=== PATIENT | female | born 1935 | race Caucasian/White ===

== ENCOUNTER 2022-02-25 00:41 | Observation (INO) | payer OTHER, SELFPAY ==
[2022-02-25] VITALS (22 sets, daily range): BP systolic 105–192; BP diastolic 50–77; PULSE 50–71; RESP 14–18; TEMP 35.8–36.4; O2SAT 92–99; BMI 26.4
--- NOTE | 2022-02-25 00:51 | ED.ABDPAIN ---
HPI - Abdominal Pain General Chief Complaint: Abdominal Pain Stated Complaint: abd/back pain x9 hours Time Seen by Provider: 02/25/22 00:51 History of Present Illness HPI narrative: 86-year-old female nonsmoker with history of hypertension, breast cancer, colon cancer status post resection with diverting ostomy (surgery last year at [facility] in [place]) presents with family in the chief complaint of worsening colicky type pain across her upper abdomen over the past 8-9 hours. She states it came on rather gradually and at times becomes very intense and seems to slowly resolve on its own. There is no obvious provocation or palliation but she does admit that it seems to radiate to her back. She denies any association with eating or drinking and has had no change in diet or medications though she states she is had a very poor appetite over the course of the day and has therefore not had anything to eat or drink and did not take her nighttime medications. She denies headache or blurred vision and has no runny nose or sore throat. She denies chest pain or shortness of breath. She is had nausea but denies any vomiting. She denies any change in the quality of fecal material in her ostomy bag. She is had no dysuria, frequency or urgency. Related Data Allergies Allergy/AdvReac Type Severity Reaction Status Date / Time codeine Allergy Verified 02/25/22 02:02 Review of Systems Review of Systems Narrative: GENERAL: Denies chills, fatigue, malaise, fever, sweats. HEENT: Denies sinus pain, ear pain, sore throat, difficulty swallowing, dizziness. RESPIRATORY: Denies dyspnea, cough, wheezing, hemoptysis, sputum. CARDIOVASCULAR: Denies chest pain, palpitations, orthopnea, edema, GASTROINTESTINAL: See HPI : Denies dysuria, frequency, incontinence, hematuria, urinary retention. MUSCULOSKELETAL: denies weakness, joint pain, or bony pain SKIN: Denies rash, skin lesions, or other NEUROLOGIC: Denies weakness, headache, numbness, change in speech, confusion, seizures, incoordination. PSYCHIATRIC: No concerning psychosocial issues. 12 point review of systems is negative except for those stated above Patient History Social History Smoking Status: Never smoker Exam Narrative Exam Narrative: GENERAL: [86] year old patient appears stated age. Well-developed patient, in mild distress. GCS 15 HEAD: Atraumatic. Normocephalic. EYES: Pupils equal round and reactive. Extraocular motions intact. No scleral icterus. No injection or drainage. ENT: Nose without bleeding, purulent drainage. Throat without erythema, tonsillar hypertrophy or exudate. Airway patent. NECK: Trachea midline. Non tender CARDIOVASCULAR: Regular rate and rhythm without murmurs, gallops, or rubs. RESPIRATORY: Clear to auscultation. Breath sounds equal bilaterally. No wheezes, rales, or rhonchi. GASTROINTESTINAL: Abdomen soft, tender in the epigastrium with some bloating, bowel sounds present but decreased EXTREMITIES: No edema or joint tenderness. BACK: Nontender without deformity or crepitance. No flank tenderness. NEURO: AOx3. SKIN: No rash or erythema of visible areas Initial Vital Signs Initial Vital Signs: Vital Signs Temperature 97.6 F 02/25/22 00:55 Pulse Rate 71 02/25/22 00:55 Respiratory Rate 18 02/25/22 00:55 Blood Pressure 192/77 H 02/25/22 00:55 Pulse Oximetry 95 02/25/22 00:55 Oxygen Delivery Method 02/25/22 00:55 Course Orders Ordered: ED Orders 02/25/22 01:04 CT abdomen pelvis w con Stat 02/25/22 01:05 Complete Blood Count AUTO DIFF Stat Comprehensive Metabolic Panel Stat Lactate (Lactic Acid) Stat Lipase Stat 02/25/22 01:17 UA Complete [Urinalysis and Microscopic] Stat 02/25/22 05:27 COVID19 -Nasal RAPID/Pre-Proc Stat Acetaminophen (Acetaminophen 650 Mg Supp) 650 mg AL Q6HR PRN PRN Reason: Fever/Mild Pain (1-3) Bisacodyl (Bisacodyl 10 Mg Supp) 10 mg AL DAILY RENARD Enalaprilat (Enalaprilat 2.5 Mg/ 2 Ml Vial) 1.25 mg IV Q6H RENARD Enoxaparin Sodium (Enoxaparin 40 Mg/0.4 Ml Syringe) 40 mg SUBCUT DAILY RENARD Hydromorphone HCl (Hydromorphone 0.5 Mg Inj) 0.5 mg IV Q2HR PRN PRN Reason: Pain, Severe (7-10) Last Admin: 02/25/22 05:04 Dose: 0.5 mg Hydromorphone HCl (Hydromorphone 0.5 Mg Inj) 0.5 mg IV Q4H PRN PRN Reason: Breakthrough pain only (8-10) Sodium Chloride (Normal Saline 0.9%) 1,000 mls @ 200 mls/hr IV CONT RENARD Last Admin: 02/25/22 05:28 Dose: 200 mls/hr Sodium Chloride (Normal Saline 0.9%) 1,000 mls @ 125 mls/hr IV CONT [facility] Ketorolac Tromethamine (Ketorolac 30 Mg/Ml Vial) 15 mg IV Q6H PRN PRN Reason: Pain, Moderate (4-6) Stop: 02/28/22 05:44 Metoclopramide HCl (Metoclopramide 10 Mg/2 Ml Inj) 5 mg IV Q6HR PRN PRN Reason: Nausea And Vomiting Metoprolol Tartrate (Metoprolol Tartrate 5 Mg/5 Ml Inj) 5 mg IV Q6H [facility] Last Admin: 02/25/22 05:57 Dose: Not Given Morphine Sulfate (Morphine 2 Mg/Ml Inj) 2 mg IV Q4H PRN PRN Reason: Pain, Moderate (4-6) Naloxone HCl (Naloxone 0.4 Mg/Ml Vial) 0.1 mg IV Q2MIN PRN PRN Reason: Opiate Reversal Ondansetron HCl (Ondansetron 4 Mg/2 Ml Inj) 4 mg IV Q2HR PRN PRN Reason: Nausea And Vomiting Last Admin: 02/25/22 05:03 Dose: 4 mg Ondansetron HCl (Ondansetron 4 Mg/2 Ml Inj) 4 mg IV Q6HR PRN PRN Reason: Nausea And Vomiting Discontinued Medications Hydromorphone HCl (Hydromorphone 0.5 Mg Inj) 0.5 mg IV NOW ONE Stop: 02/25/22 01:04 Last Admin: 02/25/22 01:13 Dose: 0.5 mg Documented By: BARRY Sodium Chloride (Normal Saline 0.9%) 1,000 mls @ 1,000 mls/hr IV BOLUS ONE Stop: 02/25/22 02:02 Last Infusion: 02/25/22 03:41 Dose: 0 mls/hr Documented By: Admin: 02/25/22 01:12 Dose: 1,000 mls/hr Documented By: BARRY Ondansetron HCl (Ondansetron 4 Mg/2 Ml Inj) 4 mg IV NOW ONE Stop: 02/25/22 01:04 Last Admin: 02/25/22 01:12 Dose: 4 mg Documented By: BARRY Pantoprazole Sodium (Pantoprazole 40 Mg Vial) 40 mg IV NOW ONE Stop: 02/25/22 01:04 Last Admin: 02/25/22 01:13 Dose: 40 mg Documented By: BARRY Consultations Consultation #1: general surgery happy to provide consultation if/when needed (Rachna) Vital Signs Vital signs: Vital Signs - 8 hr 02/25/22 00:55 Temperature 97.6 F Pulse Rate 71 Respiratory Rate 18 Blood Pressure 192/77 H Pulse Oximetry 95 Oxygen Delivery Method Room Air MDM - Abdominal Pain Lab Data Result diagrams: 02/25/22 01:05 02/25/22 01:05 Labs: Lab Results 02/25/22 02/25/22 02/25/22 Range/Units 01:05 01:05 01:05 WBC 6.9 (4.5-11.0) X10^3/uL RBC 4.60 (4.0-5.2) X10^6/uL Hgb 13.0 (12.0-16.0) g/dL Hct 39.4 (36-46) % MCV 85.8 (80-100) fL MCH 28.3 (26-34) PG MCHC 33.0 (30-36) % RDW 14.5 (11.6-14.8) % Plt Count 223 (150-400) X10^3/uL Neut % (Auto) 89.3 H (50-75) % Lymph % (Auto) 4.4 L (25-40) % [place] % (Auto) 5.5 (3-14) % Eos % (Auto) 0.3 L (2-4) % Baso % (Auto) 0.5 (0-2) % Neut # (Auto) 6100 (5520-7867) /uL Lymph # (Auto) 300 L (8724-1964) /uL [place] # (Auto) 400 (0-900) /uL Eos # (Auto) 0 (0-450) /uL Baso # (Auto) 0 (0-100) /uL Sodium 136 L (137-145) mmol/L Potassium 3.9 (3.4-5.1) mmol/L Chloride 101 (98-107) mmol/L Carbon Dioxide 25 (22-32) mmol/L BUN 24 H (7-17) mg/dL Creatinine 0.66 (0.52-1.04) mg/dL Estimated GFR > 60 (>60) mL/min BUN/Creatinine Ratio 36.4 H (6-22) Glucose 141 H (80-110) mg/dL Lactate 0.9 (0.7-2.1) mmol/L Calcium 9.3 (8.4-10.2) mg/dL Total Bilirubin 0.4 (0.2-1.3) mg/dL AST 26 (14-36) IU/L ALT 11 (<35) IU/L Alkaline Phosphatase 62 (38-126) U/L Total Protein 7.0 (6.3-8.2) g/dL Albumin 4.4 (3.5-5.0) g/dL Globulin 2.6 (1.7-4.1) g/dL Albumin/Globulin Ratio 1.7 (1.0-2.8) Lipase 37 (23-300) U/L Urine Color Urine Appearance Urine pH (4.5-8.0) Ur Specific [place] (1.000-1.035) Urine Protein (Negative) Urine Glucose (UA) (Negative) g/dL Urine Ketones (NEGATIVE) Urine Occult Blood (Negative) Urine Nitrate (Negative) Urine Bilirubin (NEGATIVE) Urine Urobilinogen (0.2) E.U./dL Ur Leukocyte Esterase (NEGATIVE) Urine RBC (0-5/HPF) Urine WBC (0-5/HPF) Ur Squamous Epith Cells (0-5/HPF) Urine Bacteria (None) Ur Culture Indicated? 02/25/22 Range/Units 01:17 WBC (4.5-11.0) X10^3/uL RBC (4.0-5.2) X10^6/uL Hgb (12.0-16.0) g/dL Hct (36-46) % MCV (80-100) fL MCH (26-34) PG MCHC (30-36) % RDW (11.6-14.8) % Plt Count (150-400) X10^3/uL Neut % (Auto) (50-75) % Lymph % (Auto) (25-40) % [place] % (Auto) (3-14) % Eos % (Auto) (2-4) % Baso % (Auto) (0-2) % Neut # (Auto) (8080-2412) /uL Lymph # (Auto) (9830-2419) /uL [place] # (Auto) (0-900) /uL Eos # (Auto) (0-450) /uL Baso # (Auto) (0-100) /uL Sodium (137-145) mmol/L Potassium (3.4-5.1) mmol/L Chloride (98-107) mmol/L Carbon Dioxide (22-32) mmol/L BUN (7-17) mg/dL Creatinine (0.52-1.04) mg/dL Estimated GFR (>60) mL/min BUN/Creatinine Ratio (6-22) Glucose (80-110) mg/dL Lactate (0.7-2.1) mmol/L Calcium (8.4-10.2) mg/dL Total Bilirubin (0.2-1.3) mg/dL AST (14-36) IU/L ALT (<35) IU/L Alkaline Phosphatase (38-126) U/L Total Protein (6.3-8.2) g/dL Albumin (3.5-5.0) g/dL Globulin (1.7-4.1) g/dL Albumin/Globulin Ratio (1.0-2.8) Lipase (23-300) U/L Urine Color Yellow Urine Appearance Clear Urine pH 6.0 (4.5-8.0) Ur Specific [place] 1.010 (1.000-1.035) Urine Protein Negative (Negative) Urine Glucose (UA) Negative (Negative) g/dL Urine Ketones Negative (NEGATIVE) Urine Occult Blood Trace-intact (Negative) Urine Nitrate Negative (Negative) Urine Bilirubin Negative (NEGATIVE) Urine Urobilinogen 0.2 (0.2) E.U./dL Ur Leukocyte Esterase Negative (NEGATIVE) Urine RBC 0-1/hpf (0-5/HPF) Urine WBC None seen (0-5/HPF) Ur Squamous Epith Cells 0-1 /hpf (0-5/HPF) Urine Bacteria Occasional (0-1) (None) Ur Culture Indicated? Cult not indicated Imaging Data CT scan - abdomen/pelvis: Radiologist's Impression: Distended bowel and mid abdomen consistent with partial small bowel obstruction, transition point not clearly identified. Discharge Plan Departure Patient Disposition: Admitted As Inpatient Clinical Impression: Small bowel obstruction Admit Date/Time: 02/25/22 05:30 Admit Provider: Mara Bacon
--- NOTE | 2022-02-25 01:04 | DI.CT.S_ITS ---
PROCEDURE: CT ABDOMEN PELVIS W CON INDICATIONS: severe epigastric pain, no appetite, hx colon CA w/resection TECHNIQUE: After the administration of oral and IV contrast, axial sections were acquired from the lung bases to the pubic symphysis. Coronal and sagittal reformats were performed. For radiation dose reduction, the following was used: automated exposure control, adjustment of mA and/or kV according to patient size. COMPARISON: None. FINDINGS: Image quality: Excellent. Lung bases: Unremarkable. Appearance of thickening at the GE junction. Surgical clips in the left breast. Heart: Mildly enlarged. ABDOMEN: Liver: Normal size. Hepatic hypodensities are most likely cysts. Gallbladder: Unremarkable. Biliary ducts: Unremarkable. Pancreas: Unremarkable. Spleen: Unremarkable. Adrenal Glands: Unremarkable. Kidneys and Ureters: Unremarkable. Stomach and Bowel: Stomach and small bowel loops are dilated. Small bowel loops measure up to 4 cm in diameter. Multiple air-fluid levels are present. There is transitional point in the mid abdomen. The findings are consistent with small bowel obstruction. Distal small bowel wall is mildly thickened. Partial left colectomy and a colostomy in the left lower quadrant. Diverticulosis. No acute diverticulitis. Moderate amount of stool in colon. Peritoneum: There is a small amount of free peritoneal fluid. No free air. Ventral Wall: There is a ventral hernia in the right anterior abdominal wall containing omental fat. Abdominal Nodes: No retroperitoneal or mesenteric adenopathy by size criteria. Vessels: Aorta and inferior vena cava are normal in size. Severe atherosclerotic calcifications. PELVIS: Pelvic Organs: Unremarkable. Bladder: Unremarkable. Pelvic Nodes: No enlarged lymph nodes. Miscellaneous: No inguinal hernias are seen. Bones: Grade 1 anterolisthesis of L4 on L5. Degenerative changes in lumbar spine. IMPRESSION: 1. Small bowel obstruction. 2. Distal small bowel appears thickened, suggesting regional enteritis. 3. Partial left colectomy and a colostomy. 4. Diverticulosis without diverticulitis. 5. There is focal thickening at the GE junction. Recommend esophagram or upper endoscopy for follow-up. 6. A small amount of free fluid is present. 7. Ventral hernia containing omental fat. No significant discrepancy with the overnight stocker radiology preliminary report. Dictated by: Greta Dennis M.D. on 02/25/2022 at 7:59 Approved by: Greta Dennis M.D. on 02/25/2022 at 8:10
[2022-02-25] MEDS: ONDANSETRON 4 MG/2 ML INJ IV ×4 (01:12→11:23)
[2022-02-25] MEDS: SODIUM CHLORIDE 0.9% 1,000 ML 1000 ML IV (01:12)
[2022-02-25] MEDS: PANTOPRAZOLE 40 MG VIAL IV (01:13)
[2022-02-25] MEDS: HYDROMORPHONE 0.5 MG INJ IV ×2 (01:13→05:04)
[2022-02-25 01:27] LABS: Alanine Aminotransferase 11 IU/L (<35); Albumin 4.4 g/dL (3.5-5.0); Albumin Globulin Ratio 1.7 (1.0-2.8); Alkaline Phosphatase 62 U/L (38-126); Aspartate Aminotransferase 26 IU/L (14-36); BUN Creatinine Ratio 36.4 (6-22); Bilirubin Total 0.4 mg/dL (0.2-1.3); Blood Urea Nitrogen 24 mg/dL (7-17); Calcium 9.3 mg/dL (8.4-10.2); Carbon Dioxide 25 mmol/L (22-32); Chloride 101 mmol/L (98-107); Estimated Glomerular Filt Rate > 60 mL/min (>60); Globulin 2.6 g/dL (1.7-4.1); Glucose 141 mg/dL (80-110); HEMOLYSIS < 15 (0-50); Lipase 37 U/L (23-300); Potassium 3.9 mmol/L (3.4-5.1); Sodium 136 mmol/L (137-145)
[2022-02-25 01:28] LABS: Lactate (Lactic Acid) 0.9 mmol/L (0.7-2.1)
[2022-02-25 01:31] LABS: Add Manual Diff / Slide Review NO; Basophils Absolute Auto 0 /uL (0-100); Basophils Percent Auto 0.5 % (0-2); Eosinophils Absolute Auto 0 /uL (0-450); Eosinophils Percent Auto 0.3 % (2-4); Hematocrit 39.4 % (36-46); Lymphocytes Absolute Auto 300 /uL (1100-4500); Lymphocytes Percent Auto 4.4 % (25-40); Mean Corpuscular Hemoglobin 28.3 PG (26-34); Mean Corpuscular Volume 85.8 fL (80-100); Monocytes Absolute Auto 400 /uL (0-900); Monocytes Percent Auto 5.5 % (3-14); Neutrophils Absolute Auto 6100 /uL (1500-7000); Neutrophils Percent Auto 89.3 % (50-75); Platelet Count 223 X10^3/uL (150-400); Red Cell Distribution Width 14.5 % (11.6-14.8); White Blood Cell Count 6.9 X10^3/uL (4.5-11.0)
[2022-02-25 01:33] LABS: Appearance Urine UA CLEAR; Bilirubin Urine UA NEGATIVE (NEGATIVE); Color Urine UA YELLOW; Glucose Urine UA NEGATIVE (Negative); Ketones Urine UA NEGATIVE (NEGATIVE); Leukocyte Esterase Urine UA NEGATIVE (NEGATIVE); Nitrite Urine UA NEGATIVE (Negative); Occult Blood Urine UA TRACE-INTACT (Negative); Protein Urine UA NEGATIVE (Negative); Urobilinogen Urine UA 0.2 E.U./dL (0.2)
[2022-02-25 01:35] LABS: RBC Urine 0-1/HPF (0-5/HPF)
[2022-02-25 01:36] LABS: Bacteria Urine Occasional (0-1); Culture Indicated Urine Cult Not Indicated; Squamous Epithelial Cell Urine 0-1 /HPF (0-5/HPF); WBC Urine None Seen (0-5/HPF)
[2022-02-25] MEDS: SODIUM CHLORIDE 0.9% 1,000 ML 200 ML IV (05:28)
[2022-02-25 06:37] LABS: COVID19 -Nasal RAPID Negative (Negative)
--- NOTE | 2022-02-25 06:45 | P.HP_ITS ---
History of Present Illness History of Present Illness Date Patient Seen: 02/25/22 Time Patient Seen: 06:45 Chief complaint: abd/back pain x9 hours Narrative: Sarah Saleem is an 86 year old female with a history of breast cancer and colon cancer status post colon resection and placement of a diverting ileostomy in September of 2020 was in her usual state of health when she developed abdominal cramping and nausea. She denied any vomiting. She also states that she has had very little output into her ileostomy bag stating it has very little stool and she has not been passing any gas. She reported to the ED provider that she had colicky like pain that radiated to her back. She describes the pain as being crampy and is intermittent. She denies fever chills. She lives in [place], was attending a family reunion at [facility]. on [place]. She is in the room with her son. CT ordered in the emergency department noted abnormally distended bowel in the mid abdomen suggestive of a partial small-bowel obstruction, transition point was not in identified, thickened distal small bowel could indicate concurrent enteritis. She also has colonic diverticulosis without diverticulitis. She is afebrile, blood pressure 114/58, heart rate 51, respiratory rate 16, oxygen saturation of 94% she weighs 149 kg with a BMI of 58.2. She is afebrile, blood pressure 105/53, heart rate 50, respiratory rate 16 oxygen saturation is 94% on room air she weighs 67.5 kg with a BMI 26.4.CBC is unremarkable, sodium is 136, glucose is 141, on the rest of her chemistries are within normal limits UA is negative for UTI and COVID-19 PCR is negative. Patient History Medical History (Updated 02/25/22 @ 06:50 by JOANIE Buchanan) Breast cancer Colon cancer Dyslipidemia Essential hypertension Surgical History (Updated 02/25/22 @ 06:50 by JOANIE Buchanan) H/O hysterectomy for benign disease History of colectomy History of ileostomy History of partial mastectomy Family & Social History Family History (Updated 02/25/22 @ 06:52 by JOANIE Buchanan) Father Myocardial infarction Mother Old age Brother Parkinson's disease Sister Cancer Safety & Behavioral: Feels Safe in Current Yes Environment Been Physically Hurt or No Threatened By a Person Tobacco & Substance use: Smoking Status Never smoker alcohol intake frequency 0-2 drinks per day Substance Use Type does not use Meds Home Medications and Allergies Allergies Allergy/AdvReac Type Severity Reaction Status Date / Time codeine Allergy Verified 02/25/22 02:02 Review of Systems Review of Systems ROS: Yes All systems reviewed with the patient and are negative except as otherwise documented Exam Vital Signs (past 8 hours): - 02/25/22 00:55 02/25/22 05:00 02/25/22 06:00 Temperature 97.6 F Pulse Rate 71 56 L 51 L Respiratory Rate 18 18 16 Blood Pressure 192/77 H 151/69 H 114/58 L Pulse Oximetry 95 99 94 Oxygen Delivery Method Room Air Room Air Oxygen Delivery Method Room Air Narrative Exam Narrative: Gen: Alert, oriented, well nourished 86 y.o. female, appears uncomfortable HEENT: normocephalic, atraumatic, conjunctiva clear, sclera non-icteric, oral mucosa pink and moist Neck: supple, full ROM, no JVD, trachea is midline Resp: Lungs CTA, non-labored breathing CV: RRR, no murmur or rubs Abd: distended, diffusely tender, hypoactive BTs, high pitched sounds Skin: illeostomy pouch on left mid abdomen, largely empty, no signs of infection, no lesions or rashes, dry and intact Neuro: Alert and oriented X 4 w/no focal deficits. Speech clear and coherent. Extremities: moves all 4 extremities, is ambulatory, negative Padmaja?s sign Psyche: normal mood and affect. Objective Labs Result Diagrams: 02/25/22 01:05 02/25/22 01:05 Labs: Laboratory Results - last 24 hr 02/25/22 02/25/22 02/25/22 01:05 01:05 01:05 WBC 6.9 RBC 4.60 Hgb 13.0 Hct 39.4 MCV 85.8 MCH 28.3 MCHC 33.0 RDW 14.5 Plt Count 223 Neut % (Auto) 89.3 H Lymph % (Auto) 4.4 L [place] % (Auto) 5.5 Eos % (Auto) 0.3 L Baso % (Auto) 0.5 Neut # (Auto) 6100 Lymph # (Auto) 300 L [place] # (Auto) 400 Eos # (Auto) 0 Baso # (Auto) 0 Sodium 136 L Potassium 3.9 Chloride 101 Carbon Dioxide 25 BUN 24 H Creatinine 0.66 Estimated GFR > 60 BUN/Creatinine Ratio 36.4 H Glucose 141 H Lactate 0.9 Calcium 9.3 Total Bilirubin 0.4 AST 26 ALT 11 Alkaline Phosphatase 62 Total Protein 7.0 Albumin 4.4 Globulin 2.6 Albumin/Globulin Ratio 1.7 Lipase 37 Urine Color Urine Appearance Urine pH Ur Specific [place] Urine Protein Urine Glucose (UA) Urine Ketones Urine Occult Blood Urine Nitrate Urine Bilirubin Urine Urobilinogen Ur Leukocyte Esterase Urine RBC Urine WBC Ur Squamous Epith Cells Urine Bacteria Ur Culture Indicated? SARS-CoV-2 (PCR) 02/25/22 02/25/22 01:17 05:29 WBC RBC Hgb Hct MCV MCH MCHC RDW Plt Count Neut % (Auto) Lymph % (Auto) [place] % (Auto) Eos % (Auto) Baso % (Auto) Neut # (Auto) Lymph # (Auto) [place] # (Auto) Eos # (Auto) Baso # (Auto) Sodium Potassium Chloride Carbon Dioxide BUN Creatinine Estimated GFR BUN/Creatinine Ratio Glucose Lactate Calcium Total Bilirubin AST ALT Alkaline Phosphatase Total Protein Albumin Globulin Albumin/Globulin Ratio Lipase Urine Color Yellow Urine Appearance Clear Urine pH 6.0 Ur Specific [place] 1.010 Urine Protein Negative Urine Glucose (UA) Negative Urine Ketones Negative Urine Occult Blood Trace-intact Urine Nitrate Negative Urine Bilirubin Negative Urine Urobilinogen 0.2 Ur Leukocyte Esterase Negative Urine RBC 0-1/hpf Urine WBC None seen Ur Squamous Epith Cells 0-1 /hpf Urine Bacteria Occasional (0-1) Ur Culture Indicated? Cult not indicated SARS-CoV-2 (PCR) Negative Assessment & Plan Assessment & Plan narrative: Sarah Saleem will be admitted for a partial small-bowel obstruction. Partial small-bowel obstruction, acute, present on admission * She will be NPO * General surgery has been notified and will see the patient though unlikely to do anything invasive * IVF normal saline at 150 mL/hour GERD, chronic * She is ordered for IV Protonix 40 mg daily Essential hypertension, chronic * She normally takes lisinopril, amlodipine and metoprolol * I have written her for IV enalapril and Lopressor q.6 hours and have requested nursing not administer for blood pressure goes below a systolic of 120 Dyslipidemia, chronic * Statin is being held VTE Prophylaxis: Wells risk score 1 Enoxaparin 40 mg subQ once daily Bilateral SCDs Patient is admitted to the inpatient service due to the severity of disease, risks of further disease progression and this stay is expected to exceed 2 midnights. FEN: IV fluids: NS at 150 ml/hour, diet: NPO, labs: CBC, C/BMP, liver enzymes, Mag, PT/INR Consultants Dr. Briscoe, General Surgery care and involvement in the patient?s care is appreciated. Dispo: probable d/c to home when SBO resolved Code status: DNR/DNI as discussed with the patient who identifies her son Ottoniel Saleem as her surrogate and POA. [X] I have utilized all available immediate resources to obtain, update, or review of the patient's current medications COVID-19 COVID-19 status: Negative Result date/Date tested (Pos, Neg/Pending): 02/25/22 Scores Wells' Criteria for PE Clinical signs and symptoms of DVT: No PE is #1 Dx or equally likely: No Heart rate > 100: No Immobilization at least 3 days or surg in previous 4 weeks: No History of PE or DVT: No Hemoptysis: No Malignancy w/Treatment within 6 months or palliative: Yes Wells' PE Score total: 1 Quality VTE Deep Vein Thrombosis/Pulmonary Embolism Present on Admission: No MIPS - Admit I confirm the patient?s Advance Care Plan is present, Code status is documented, Surrogate decision maker is in patient?s record [If Yes, STOP here]: Yes MIPS - DC The patient has current or prior documentation of left ventricular ejection fraction (LVEF) less than 40%, or moderate or severely depressed left ventricular systolic function.: No
--- NOTE | 2022-02-25 07:41 | DI.RAD.S_ITS ---
PROCEDURE: FL SMALL BOWEL FOLLOW THROUGH INDICATIONS: small bowel obstruction. Perform with gastrografin COMPARISON: None. FINDINGS: KUB: Preprocedural engineering recruiter film demonstrates a nonobstructive bowel gas pattern. No suspicious abdominal calcifications. Surgical clips noted in the lower abdomen/pelvis. Visualized solid organ contours appear normal. No suspicious bony abnormalities. Small bowel: At the 2 hour image, oral contrast persists within the stomach. No opacification of small bowel or colon noted. At the 4 hour image, oral contrast has transited through the small bowel and colon with contrast material present within the colostomy bag in the left abdomen. Small bowel loops are of normal caliber throughout. Mucosal folds are smooth and of normal thickness. No strictures, intraluminal masses, or extrinsic mass effects are noted. The terminal ileum is identified, and is normal in morphology. IMPRESSION: Nonobstructive bowel gas pattern. Oral contrast is noted to have passed from the stomach through the colon. Dictated by: Afshin Griffin M.D. on 02/25/2022 at 12:17 Approved by: Afshin Griffin M.D. on 02/25/2022 at 12:20
[2022-02-25] MEDS: ENOXAPARIN 40 MG/0.4 ML SYRINGE SUBCUT (08:18)
[2022-02-25] MEDS: SODIUM CHLORIDE 0.9% 1,000 ML 125 ML IV (09:27)
--- NOTE | 2022-02-25 11:21 | PC.NURSE ---
Patient takes care of own ostomy
--- NOTE | 2022-02-25 11:45 | PM.EVENT ---
Event Note Event Note (Rapid Response, Code, or fall): Patient seen this morning during rounds. She seems to be very comfortable. Continues to have some nausea. Abdomen still distended and tender when palpating in all quadrants. Decreased bowel sounds. She says that she might be passing some gas through ileostomy. She never had these episodes before. Continue NPO at this time. If her nausea improves he will start with ice chips and clear liquids. If patient's nausea is not improving, we will consider an NG tube placement. She is not actively vomiting at this time, no need of NG tube. Continue bowel rest. Other chronic medical conditions as mentioned in HPI. Surgery is on board. I offered to talk to her son regarding the care plan but he just left the hospital and was updated by our primary team at night.
[2022-02-25] MEDS: ENALAPRILAT 2.5 MG/ 2 ML VIAL 1.25 MG IV ×2 (11:55→19:05)
[2022-02-25] MEDS: METOPROLOL TARTRATE 5 MG/5 ML INJ IV ×2 (11:55→19:04)
--- NOTE | 2022-02-25 14:54 | P.CONS_ITS ---
History of Present Illness Consult details Date Patient Seen: 02/25/22 Chief complaint: abd/back pain x9 hours Narrative: 86-year-old woman with a history of end colostomy for rectal cancer who is admitted to the hospital with a small-bowel obstruction. She developed abdominal distension and nausea with with a no colostomy output yesterday and presented to the emergency room for evaluation. CT abdomen pelvis demonstrated a small-bowel obstruction, no allen transition point. Gastrografin small-bowel follow-through this morning demonstrates complete passage contrast into the colon and colostomy appliance. She currently feels well without abdominal pain nausea. Meds Home Medications and Allergies Home Medications Medication Instructions Recorded Confirmed Type amlodipine 2.5 mg tablet 2.5 mg PO BEDTIME 02/25/22 02/25/22 History amlodipine 5 mg tablet 5 mg PO BEDTIME 02/25/22 02/25/22 History carboxymethylcellulose sodium 0.5 1 drp ophthalmic (eye) BEDTIME 02/25/22 History % eye drops (Refresh Tears) cholecalciferol (vitamin D3) 50 50 mcg PO DAILY 02/25/22 02/25/22 History mcg (2,000 unit) capsule (Vitamin D3) lisinopril 20 2 tab PO DAILY 02/25/22 02/25/22 History mg-hydrochlorothiazide 12.5 mg tablet metoprolol succinate 25 mg 25 mg PO DAILY 02/25/22 02/25/22 History tablet,extended release 24 hr montelukast 10 mg tablet 10 mg PO BEDTIME 02/25/22 02/25/22 History omeprazole magnesium 20 mg 20 mg PO DAILY 02/25/22 02/25/22 History capsule,delayed release (Acid Youth Liaison Officer (omeprazole)) simvastatin 20 mg tablet 20 mg PO BEDTIME 02/25/22 02/25/22 History Allergies Allergy/AdvReac Type Severity Reaction Status Date / Time codeine Allergy Verified 02/25/22 02:02 Exam Vital Signs (past 8 hours): - 02/25/22 07:00 02/25/22 07:01 02/25/22 07:01 Pulse Rate 52 L 64 Respiratory Rate Blood Pressure 132/60 Blood Pressure [Right Wrist] Pulse Oximetry 92 Oxygen Delivery Method 02/25/22 07:30 02/25/22 07:30 02/25/22 08:19 Pulse Rate 59 L 62 Respiratory Rate Blood Pressure 125/61 Blood Pressure [Right Wrist] Pulse Oximetry 92 96 Oxygen Delivery Method 02/25/22 08:30 02/25/22 09:00 02/25/22 09:30 Pulse Rate 57 L 55 L 56 L Respiratory Rate 18 Blood Pressure Blood Pressure [Right Wrist] Pulse Oximetry 92 94 94 Oxygen Delivery Method 02/25/22 09:46 02/25/22 09:46 02/25/22 10:00 Pulse Rate 57 L 63 Respiratory Rate Blood Pressure 121/58 L Blood Pressure [Right Wrist] Pulse Oximetry 96 93 Oxygen Delivery Method 02/25/22 10:30 02/25/22 11:00 02/25/22 11:17 Pulse Rate 54 L 55 L 60 Respiratory Rate Blood Pressure Blood Pressure [Right Wrist] Pulse Oximetry 93 94 97 Oxygen Delivery Method 02/25/22 11:17 02/25/22 13:18 02/25/22 13:45 Pulse Rate 55 L Respiratory Rate 17 Blood Pressure 134/61 Blood Pressure [Right Wrist] 125/60 Pulse Oximetry 96 Oxygen Delivery Method Room Air Room Air Oxygen Delivery Method Room Air Narrative Exam Narrative: General adult woman alert oriented no acute distress Chest nonlabored respiration Abdomen soft nontender nondistended. Colostomy viable and functional. Objective Labs Result Diagrams: 02/25/22 01:05 02/25/22 01:05 Labs: Laboratory Results - last 24 hr 02/25/22 02/25/22 02/25/22 01:05 01:05 01:05 WBC 6.9 RBC 4.60 Hgb 13.0 Hct 39.4 MCV 85.8 MCH 28.3 MCHC 33.0 RDW 14.5 Plt Count 223 Neut % (Auto) 89.3 H Lymph % (Auto) 4.4 L [place] % (Auto) 5.5 Eos % (Auto) 0.3 L Baso % (Auto) 0.5 Neut # (Auto) 6100 Lymph # (Auto) 300 L [place] # (Auto) 400 Eos # (Auto) 0 Baso # (Auto) 0 Sodium 136 L Potassium 3.9 Chloride 101 Carbon Dioxide 25 BUN 24 H Creatinine 0.66 Estimated GFR > 60 BUN/Creatinine Ratio 36.4 H Glucose 141 H Lactate 0.9 Calcium 9.3 Total Bilirubin 0.4 AST 26 ALT 11 Alkaline Phosphatase 62 Total Protein 7.0 Albumin 4.4 Globulin 2.6 Albumin/Globulin Ratio 1.7 Lipase 37 Urine Color Urine Appearance Urine pH Ur Specific [place] Urine Protein Urine Glucose (UA) Urine Ketones Urine Occult Blood Urine Nitrate Urine Bilirubin Urine Urobilinogen Ur Leukocyte Esterase Urine RBC Urine WBC Ur Squamous Epith Cells Urine Bacteria Ur Culture Indicated? SARS-CoV-2 (PCR) 02/25/22 02/25/22 01:17 05:29 WBC RBC Hgb Hct MCV MCH MCHC RDW Plt Count Neut % (Auto) Lymph % (Auto) [place] % (Auto) Eos % (Auto) Baso % (Auto) Neut # (Auto) Lymph # (Auto) [place] # (Auto) Eos # (Auto) Baso # (Auto) Sodium Potassium Chloride Carbon Dioxide BUN Creatinine Estimated GFR BUN/Creatinine Ratio Glucose Lactate Calcium Total Bilirubin AST ALT Alkaline Phosphatase Total Protein Albumin Globulin Albumin/Globulin Ratio Lipase Urine Color Yellow Urine Appearance Clear Urine pH 6.0 Ur Specific [place] 1.010 Urine Protein Negative Urine Glucose (UA) Negative Urine Ketones Negative Urine Occult Blood Trace-intact Urine Nitrate Negative Urine Bilirubin Negative Urine Urobilinogen 0.2 Ur Leukocyte Esterase Negative Urine RBC 0-1/hpf Urine WBC None seen Ur Squamous Epith Cells 0-1 /hpf Urine Bacteria Occasional (0-1) Ur Culture Indicated? Cult not indicated SARS-CoV-2 (PCR) Negative PFSH Medical History Breast cancer Cataract, bilateral Colon cancer Dyslipidemia Essential hypertension GERD (gastroesophageal reflux disease) Macular degeneration Surgical History H/O hysterectomy for benign disease History of cataract removal with insertion of prosthetic lens History of colectomy History of ileostomy History of mastectomy History of partial mastectomy Family History Father Myocardial infarction Mother Old age Brother Parkinson's disease Sister Cancer Social History household members: children Tobacco & Substance Use Smoking Status: Former smoker Assessment & Plan Assessment and plan (1) Small bowel obstruction: Status: Acute Assessment & Plan narrative: 86-year-old woman with a history of colon cancer status post end colostomy who is admitted to the hospital with a small-bowel obstruction. Small-bowel follow-through study demonstrates resolution of the obstruction there is transit of contrast into the colon. No surgical intervention is necessary. -regular diet -call with questions Time Spent With Patient Critical Care time: I spent a total of [] minutes of critical care time on this patient's care today; this time is exclusive of procedural time.
[2022-02-25] MEDS: SODIUM CHLORIDE 0.9% FLUSH 10 ML IV (19:08)
--- NOTE | 2022-02-25 19:44 | PC.NURSE ---
GI: Pt reports she is much improved since she came to ED. Has been able to take fluids and sm amt of food w/out problems. Reports she has had 3 pouches of stool since on floor. (Had 3 in ED as well.) BTs are almost hyper active. No use of nausea meds or pain meds. Will cont to monitor gi status.
[2022-02-25] MEDS: ATORVASTATIN 20 MG TABLET 10 MG PO (20:36)
[2022-02-25] MEDS: MONTELUKAST 10 MG TABLET PO (20:37)
[2022-02-25] MEDS: POLYVINYL ALCOHOL DROPS 1 DROPS EYE-BOTH (20:42)
--- NOTE | 2022-02-25 22:34 | PC.NURSE ---
Patient is alert and oriented. Breath sounds CTA with RA sat of 93%. HRR but bradycardic; telemetry reading was SB (rate of 54) w/premature atrial contractions. Denied nausea. BT present and abdomen is soft and has brown stool present in ostomy appliance. Denied dysuria, frequency or urgency with urination. Is able to turn herself in bed and up to bathroom with SBA/independent. Wearing bilateral calf SCD's. Denied pain. Fall risk score is moderate but patient calls for assist appropriately so alarm is not activated.
[2022-02-26 02:03] VITALS: BP 121/45; PULSE 72; RESP 17; TEMP 36.4; O2SAT 92
[2022-02-26 06:02] VITALS: BP 119/46; PULSE 76; RESP 16; TEMP 36.3; O2SAT 93
[2022-02-26 06:36] LABS: Alanine Aminotransferase 9 IU/L (<35); Albumin 3.4 g/dL (3.5-5.0); Albumin Globulin Ratio 1.5 (1.0-2.8); Alkaline Phosphatase 48 U/L (38-126); Aspartate Aminotransferase 25 IU/L (14-36); BUN Creatinine Ratio 21.1 (6-22); Bilirubin Total 0.3 mg/dL (0.2-1.3); Bilirubin Unconjugated 0.3 mg/dL (0.0-1.1); Blood Urea Nitrogen 15 mg/dL (7-17); Calcium 8.4 mg/dL (8.4-10.2); Carbon Dioxide 28 mmol/L (22-32); Chloride 107 mmol/L (98-107); Estimated Glomerular Filt Rate > 60 mL/min (>60); Globulin 2.3 g/dL (1.7-4.1); Glucose 91 mg/dL (80-110); HEMOLYSIS < 15 (0-50); Magnesium 1.6 mg/dL (1.6-2.3); Potassium 3.3 mmol/L (3.4-5.1); Sodium 138 mmol/L (137-145); Total Protein 5.7 g/dL (6.3-8.2)
[2022-02-26 06:43] LABS: Add Manual Diff / Slide Review NO; Basophils Absolute Auto 0 /uL (0-100); Basophils Percent Auto 0.8 % (0-2); Eosinophils Absolute Auto 100 /uL (0-450); Eosinophils Percent Auto 4.6 % (2-4); Hematocrit 31.6 % (36-46); Hemoglobin 10.6 g/dL (12.0-16.0); Lymphocytes Absolute Auto 400 /uL (1100-4500); Lymphocytes Percent Auto 14.3 % (25-40); Mean Corpuscular HGB Conc 33.5 % (30-36); Mean Corpuscular Hemoglobin 28.8 PG (26-34); Mean Corpuscular Volume 86.2 fL (80-100); Monocytes Absolute Auto 300 /uL (0-900); Monocytes Percent Auto 9.1 % (3-14); Neutrophils Absolute Auto 2100 /uL (1500-7000); Neutrophils Percent Auto 71.2 % (50-75); Platelet Count 169 X10^3/uL (150-400); Red Blood Cell Count 3.66 X10^6/uL (4.0-5.2); Red Cell Distribution Width 14.4 % (11.6-14.8); White Blood Cell Count 2.9 X10^3/uL (4.5-11.0)
--- NOTE | 2022-02-26 07:15 | P.DS_ITS ---
History of Present Illness History of Present Illness Chief complaint: abd/back pain x9 hours Narrative: Sarah Saleem is an 86 year old female with a history of breast cancer and colon cancer status post colon resection and placement of a diverting ileostomy in September of 2020 was in her usual state of health when she developed abdominal cramping and nausea.? She denied any vomiting.? She also states that she has had very little output into her ileostomy bag stating it has very little stool and she has not been passing any gas.? She reported to the ED provider that she had colicky like pain that radiated to her back.? She describes the pain as being crampy and is intermittent.? She denies fever chills.? She lives in [place], was attending a family reunion at [facility]. on [address] She is in the room with her son. CT ordered in the emergency department noted abnormally distended bowel in the mid abdomen suggestive of a partial small-bowel obstruction, transition point was not in identified, thickened distal small bowel could indicate concurrent enteritis.? She also has colonic diverticulosis without diverticulitis.? She is afebrile, blood pressure 114/58, heart rate 51, respiratory rate 16, oxygen saturation of 94% she weighs 149 kg with a BMI of 58.2.? She is afebrile, blood pressure 105/53, heart rate 50, respiratory rate 16 oxygen saturation is 94% on room air she weighs 67.5 kg with a BMI 26.4.CBC is unremarkable, sodium is 136, glucose is 141, on the rest of her chemistries are within normal limits UA is negative for UTI and COVID-19 PCR is negative. Discharge Providers Provider Date of admission: 02/25/22 05:30 Discharge Date: 02/26/22 Primary care physician: Bela Denton MD Consults: 02/25/22 05:41 Consult to Physician Routine Comment: Consulting Provider: Marco Briscoe Reason for consultation: SBO Has provider been notified: Yes Discharge provider: Francesco Cardozo DO Summary Hospital Course Discharge Diagnosis: Partial small-bowel obstruction, acute, present on admission GERD, chronic Essential hypertension, chronic Dyslipidemia, chronic Hospital Course: Patient admitted for nausea and vomiting with CT scan showing small bowel obstruction general surgery was consulted who recommended Gastrografin study which was successful in showing contrast passed through the entire small bowel. She had hypokalemia with potassium of 3.3 and a potassium supplement was recommended but patient elected to try potassium rich foods instead. Patient's nausea and vomiting improved following this and she was discharged home. Exam Vital Signs (past 8 hours): - 02/26/22 02:03 02/26/22 02:03 02/26/22 06:02 Temperature 97.6 F 97.3 F L Pulse Rate 72 76 Respiratory Rate 17 16 Blood Pressure 121/45 L 119/46 L Pulse Oximetry 92 92 93 Oxygen Delivery Method Room Air Oxygen Flow Rate 0 02/26/22 06:02 Temperature Pulse Rate Respiratory Rate Blood Pressure Pulse Oximetry Oxygen Delivery Method Oxygen Flow Rate 0 Oxygen Delivery Method Room Air Oxygen Flow Rate 0 Narrative Exam Narrative: Gen: Alert, oriented, well nourished 86 y.o. female HEENT: normocephalic, atraumatic, conjunctiva clear, sclera non-icteric, oral mucosa pink and moist Neck: supple, full ROM, no JVD, trachea is midline Resp: Lungs CTA, non-labored breathing CV: RRR, no murmur or rubs Abd: Soft and nontender, normoactive BTs Skin: illeostomy pouch on left mid abdomen, largely empty, no signs of infection, no lesions or rashes, dry and intact Neuro: Alert and oriented X 4 w/no focal deficits. Speech clear and coherent. Extremities: moves all 4 extremities, is ambulatory, negative Padmaja?s sign Psyche: normal mood and affect. Objective Labs Result Diagrams: 02/26/22 06:15 02/26/22 06:15 Labs: Laboratory Results - last 24 hr 02/26/22 02/26/22 06:15 06:15 WBC 2.9 L D RBC 3.66 L Hgb 10.6 L Hct 31.6 L MCV 86.2 MCH 28.8 MCHC 33.5 RDW 14.4 Plt Count 169 Neut % (Auto) 71.2 Lymph % (Auto) 14.3 L [place] % (Auto) 9.1 Eos % (Auto) 4.6 H Baso % (Auto) 0.8 Neut # (Auto) 2100 Lymph # (Auto) 400 L [place] # (Auto) 300 Eos # (Auto) 100 Baso # (Auto) 0 Sodium 138 Potassium 3.3 L Chloride 107 Carbon Dioxide 28 BUN 15 Creatinine 0.71 Estimated GFR > 60 BUN/Creatinine Ratio 21.1 Glucose 91 Calcium 8.4 Magnesium 1.6 Total Bilirubin 0.3 Conjugated Bilirubin 0.0 Unconjugated Bilirubin 0.3 AST 25 ALT 9 Alkaline Phosphatase 48 Total Protein 5.7 L Albumin 3.4 L Globulin 2.3 Albumin/Globulin Ratio 1.5 PFS Medical History Breast cancer Cataract, bilateral Colon cancer Dyslipidemia Essential hypertension GERD (gastroesophageal reflux disease) Macular degeneration Surgical History H/O hysterectomy for benign disease History of cataract removal with insertion of prosthetic lens History of colectomy History of ileostomy History of mastectomy History of partial mastectomy Family History Father Myocardial infarction Mother Old age Brother Parkinson's disease Sister Cancer Social History household members: children Smoking Status: Former smoker Discharge Plan Discharge Plan Patient Disposition: Home Provider Discharge Comment: You were admitted for a suspected partial small- bowel obstruction causing nausea and vomiting. You underwent barium study which did not show traction and help to move your bowels. This has improved your nausea and vomiting. You are safe to go home. I would start a bowel regimen with either Metamucil or MiraLax with senna to keep you having a bowel movement at least daily. Also talk with your PCP about the blood pressure medication amlodipine that you take as it can cause constipation. Discharge orders & Medications Prescriptions: Continued amlodipine 5 mg Tablet 5 mg PO BEDTIME amlodipine 2.5 mg Tablet 2.5 mg PO BEDTIME Label Comments: Total dose is 7.5mg at bedtime simvastatin 20 mg Tablet 20 mg PO BEDTIME montelukast 10 mg Tablet 10 mg PO BEDTIME metoprolol succinate 25 mg Tablet Extended Release 24 Hr 25 mg PO DAILY omeprazole magnesium [Acid Machine Clothing Replacer (omeprazole)] 20 mg Capsule,Delayed Release(Dr/Ec) 20 mg PO DAILY lisinopril-hydrochlorothiazide 20-12.5 mg Tablet 2 tab PO DAILY Label Comments: Takes 2 tabs in the am cholecalciferol (vitamin D3) [Vitamin D3] 50 mcg (2,000 unit) Capsule 50 mcg PO DAILY carboxymethylcellulose sodium [Refresh Tears] 0.5 % Drops 1 drp OPHTHALMIC (EYE) BEDTIME Rx Instructions: 1 drop to both eyes at bedtime. omega-3 fatty acids Capsule 1,000 mg PO DAILY calcium carbonate 500 mg Capsule 1,000 mg PO DAILY Follow up/Referrals: Bela Wadsworth MD [Primary Care Provider] - Diet/Activity/Treatments Diet: Regular Visit Report/Discharge Packet Instructions: DI for Small Bowel Obstruction, DI for High Blood Pressure Discharge Data Primary Care Provider: Bela Wadsworth Quality VTE Deep Vein Thrombosis/Pulmonary Embolism Present on Admission: No
[2022-02-26 07:20] VITALS: BP 122/48; PULSE 52; RESP 18; TEMP 36.6; O2SAT 93
[2022-02-26 07:30] VITALS: O2SAT 96
[2022-02-26] MEDS: ENOXAPARIN 40 MG/0.4 ML SYRINGE SUBCUT (08:36)
[2022-02-26] MEDS: MAGNESIUM SULFATE 2 GM/50 ML PIGGYBACK IV (08:36)
[2022-02-26] MEDS: POTASSIUM CHLORIDE 20 MEQ TAB 40 MEQ PO (08:36)
[2022-02-26] MEDS: PANTOPRAZOLE DR 20 MG TABLET PO (08:37)
[2022-02-26] MEDS: METOPROLOL ER 25 MG TABLET PO (08:37)
[2022-02-26] MEDS: SODIUM CHLORIDE 0.9% FLUSH 10 ML IV (08:38)
[2022-02-26] MEDS: lisinopriL 20 MG TABLET PO (08:38)
[2022-02-26 11:00] VITALS: BP 138/61; PULSE 53; RESP 18; TEMP 36.4; O2SAT 94
--- NOTE | 2022-02-26 12:39 | CM.DANOTE ---
Patient is an 86 yo female who was admitted on 02/25/22 for Abd Pain. Pt has [facility] for insurance and her PCP is Bela Wadsworth. EMR was reviewed. Per MD, pt with a hx of breast CA and color CA with resection and illiostomy in Sep 2020 last year. Pt admitted for partial SBO but had SBFT which showed some resolution. Per Surgeon Consult, no surgical intervention needed at this time and post SBFT pt was tolerating clears and was advanced to regular diet and no further surgical needs at this time. Per RN, pt SBA and independent in room with adult supportive son/DPOA Ottoniel bedside and no concerns at this time. Per MD, pt stooling in her ostomy and no discharge planning needs and after discussion with pt and son bedside pt is safe for d/c home via son POV to [place] today with no barriers to discharge. No bedside assessment completed at this time due to triage needs. Plan: Patient to d/c home via son POV today and outpt f/u and no further discharge planning needs at this time. FREDIS Natarajan Discharge Planning/Care Management Advanced directive, confirm from FAMILY Start: 02/25/22 14:37 Freq: Q24H Status: Active Protocol: Document 02/25/22 14:37 CEW (Rec: 02/25/22 15:12 CEW [id number]) Advance Directive, confirm on record Time 15:11 Person contacted pt Copy received No
== END 2022-02-26 16:00 | disposition home or self-care (01) | DRG 390 ==
LOC: ED 04:59 → AC 06:01
PROVIDERS: Admitting Provider Nurse Practitioner Family; Emergency Provider Emergency Medicine; PCP Family Medicine; Referring Provider Emergency Medicine; Visit Provider Family Medicine
DX: K56.600 Partial intestinal obstruction, unspecified as to cause (principal); K21.9 Gastro-esophageal reflux disease without esophagitis; I10 Essential (primary) hypertension; E78.5 Hyperlipidemia, unspecified; Z93.3 Colostomy status; Z20.822 Contact with and (suspected) exposure to COVID-19
CPT/HCPCS: 36415; 74177; 74250; 80048; 80053; 80076; 81001; 83605; 83690; 83735; 85025; 87635; 96361; 96372; 96374; 96375; 96376; 99225; 99284; C9803; G0378; C9113; J1170; J1650; J2405; J3475; Q9967